=== PATIENT | male | born 1985 | race Caucasian/White ===

== ENCOUNTER 2023-09-20 11:23 | Emergency (ER) | payer OTHER, SELFPAY ==
[2023-09-20 11:25] VITALS: BP 137/89
--- NOTE | 2023-09-20 12:24 | ED.GENMED ---
History of Present Illness
General
Chief Complaint: Skin Problem
Source: patient
Exam Limitations: none
Time Seen by Provider: 09/20/23 12:16
Travel History
Have you had any contact with someone who has COVID-19?: No
Do you have any symptoms of coronavirus? Fever > 100 degrees, chills, cough, shortness of breath, sore throat, loss of taste or smell, muscle aches, or headache?: No
History of Present Illness
History of Present Illness:
38-year-old male presents with right ring finger swelling redness and pain for 5 days. He is healthy otherwise. He occasionally bites his nails. He does work in the garden frequently. His who is in healthcare prescribing Keflex he has been
on this for several days without improvement. No other complaints at this time
Phy Exam
Physical Exam
Physical Exam:
General: Well-appearing male no acute respiratory distress
Skin: Erythema and fluctuance noted over the eponychial fold of the right ring finger. No significant drainage.
MSK: Full range of motion right ring finger.
Neurologic: Good sensation right ring finger
Course
Orders/Labs/Results
Orders:
Orders
09/20/23 12:22
CR Finger(s)/thumb Min 2 Vw Rt Urgent
Comment:
Reason For Exam: infection
Vital Signs
Initial and Last Documented VS:
Initial Vital Signs
Temp Pulse Resp BP Pulse Ox
98.6 F 77 16 137/89 98
09/20/23 11:25 09/20/23 11:25 09/20/23 11:25 09/20/23 11:25 09/20/23 11:25
Last Documented Vital Signs
Temp Pulse Resp BP Pulse Ox
98.6 F 77 16 137/89 98
09/20/23 11:25 09/20/23 11:25 09/20/23 11:25 09/20/23 11:25 09/20/23 11:25
MDM/Problems Addressed
Differential Diagnosis Includes:
Cellulitis versus abscess versus paronychia. Question possible underlying bony involvement but unlikely given young healthy patient. X-ray pending. If negative will continue with incision and drainage of paronychia
*Critical Care Note
Total Time (30-74mins, 75-104mins- exclusive of procedures): Not Applicable
Update Note
Update Note:
Personally visualized x-rays of the right ring finger which are negative for acute bony infection. Suspect paronychia. The finger was sterilely prepped with Betadine and anesthetized in a local fashion using 1% lidocaine. An 11 blade scalpel was
used to drain the paronychia. A moderate amount of purulent material was obtained followed by bloody return. This was irrigated with saline a dressing applied. He is on Keflex which I advised he continue. Stable for discharge
ED Attending Note
-
Portions of this chart may have been created with voice recognition software.� Occasional wrong word or��sound alike� substitutions may have occurred due to the inherent limitations of voice recognition software.
Discharge Plan
Departure
Patient Disposition: Home (Routine Discharge)
Date of Disposition: 09/20/23
Time of Disposition: 12:51
Patient with high blood pressure during this ER visit?: No
Discharge Problem:
Paronychia
Instructions: Paronychia
Referrals:
UNKNOWN - PT DOES,NOT KNOW [Family Provider] -
Activity Restrictions/Additional Instructions:
Continue antibiotics. Use warm soaks. Return for worsening redness or swelling.
Interventions
Interventions:
*Risk Screen - Suicide Last Done: 09/20/23 11:25
*General Assessment Last Done: 09/20/23 11:25
*Neglect/Abuse Screening Last Done: 09/20/23 11:25
Discharge Date and Time
Print Language: [id number]
== END 2023-09-20 13:50 | disposition home or self-care (01) ==
LOC: EMR 11:23
PROVIDERS: EMERGENCY PHYSICIAN Emergency Medicine
DX: L03.011 Cellulitis of right finger (principal)
CPT/HCPCS: 99282; 10060; 73140